=== PATIENT | female | born 1990 | race Caucasian/White ===

== ENCOUNTER 2022-11-23 02:31 | Outpatient (CLI) | payer BC, SELFPAY ==
--- NOTE | 2022-11-23 09:15 | DI.MRI_ITS ---
Exam(s) MR VENOUS BRAIN WO/W EXAM: MR VENOUS BRAIN WO/W CLINICAL HISTORY: ?IIH, papilledema, H47.10 TECHNIQUE: Multiplanar multisequence MRI of the brain was performed. Both noninfused and contrast i nfused sequences were performed. IV Contrast injected was 20 cc Dotarem. COMPARISON: MR MR BRAIN WO from 11/23/2022 FINDINGS: The visualized cortical veins appear patent. Superior sagittal sinus is patent Straight sinus is patent Transverse sinuses exhibit asymmetry with the right transverse sinus being dominant and draining the superior sagittal sinus. The right sigmoid sinus is also dominant. The right jugular vein is dominant IMPRESSION: 1. No evidence of obvious venous sinus thrombosis. The right transverse sinus is dominant with the le ft being smaller, most probably on a developmental basis. DATA REPOSITORY:
--- NOTE | 2022-11-23 09:15 | DI.MRI_ITS ---
Exam(s) MR BRAIN WO EXAM: MR BRAIN WO CLINICAL HISTORY: papilledema, H47.10 TECHNIQUE: Multiplanar multisequence MRI of the brain was performed. COMPARISON: No priors for comparison. FINDINGS: VENTRICLES AND EXTRA AXIAL SPACES: Normal in size and morphology for the patient's age. MIDLINE SHIFT: None. CEREBRAL PARENCHYMA: No focus of restricted diffusion to suggest acute infarct. No space-occupying le wil identified. HEMORRHAGE: None. BRAINSTEM/CEREBELLUM: Normal. CALVARIUM: Normal. VISUALIZED PARANASAL SINUSES/MASTOIDS:There is mucosal thickening in the left maxillary sinus. [place]: Normal flow void. PITUITARY GLAND: There is a partially empty sella. OTHER FINDINGS: None. IMPRESSION: Unremarkable MRI of the brain. DATA REPOSITORY:
[2022-11-23] MEDS: Normal Saline Flush 10 ML SYR IVP (15:56)
[2022-11-23] MEDS: Gadoterate meglumine 20 ML SYRINGE IVP (15:56)
--- NOTE | 2022-11-24 10:39 | DI.VRAD_ITS ---
PROCEDURE INFORMATION: Exam: MRA Head Without and With Contrast, Venography Exam date and time: 11/23/2022 3:47 PM Age: 32 years old Clinical indication: Condition or disease; Other: Papilledema TECHNIQUE: Imaging protocol: Magnetic resonance angiography of the head without and with contrast. Angiographic sequences such as [id number] (TOF) or Time-resolved contrast techniques were performed. Exam focused on the veins. Contrast material: DOTAREM; Contrast volume: 20 ml; Contrast route: INTRAVENOUS (IV); COMPARISON: MR BRAIN WO 11/23/2022 3:31 PM FINDINGS: Superior sagittal sinus: No stenosis or occlusion. Cortical veins appear unremarkable as visualized. Straight sinus: No stenosis or occlusion. Transverse sinuses: Right transverse sinus is dominant draining the superior sagittal sinus. Left transverse sinus is congenitally smaller appears to drain the straight sinus. There is no well-defined stenosis. The dural sinus appears larger distal to the entry of prominent vein of Lizbeth involving the sigmoid sinus and jugular vein without evidence of definite acquired stenosis. Sigmoid sinuses: No stenosis or occlusion. Right sigmoid sinus is dominant. Internal jugular veins: Visualized segment patent. Right jugular vein is dominant. IMPRESSION: 1. No evidence of venous thrombosis. Dominant right transverse sinus. Smaller left transverse sinus most likely on congenital basis. 2. Empty sella turcica noted. Please see report of MRI of brain. Dictated and Authenticated by: Shelly Jones MD. Ordering:GOPAL Hinkle MD
== END 2022-11-23 02:51 ==
PROVIDERS: Visit Provider Psychiatry & Neurology Neurology
DX: H47.10 Unspecified papilledema (principal)
CPT/HCPCS: 70546; 70551

== ENCOUNTER 2022-12-04 10:22 | Outpatient (CLI) | payer BC, SELFPAY ==
[2022-12-04 10:46] VITALS: BP 153/103; PULSE 86; RESP 16; TEMP 36.7; O2SAT 99
--- NOTE | 2022-12-04 11:01 | W.ANESPRE ---
General Info Date of Service Date Performed: 12/04/22 Height: 5 ft Weight: 115.4 kg Body Mass Index (BMI): 49.6 Surgical Procedure: Operation Date: 12/04/22 10:40 Proposed Procedure Side Surgeon p Lumbar Puncture Adolfo Olivera CRNA Meds Allergies and Home Medications Allergies Allergy/AdvReac Type Severity Reaction Status Date / Time hydrocortisone Allergy Unknown Verified 12/04/22 10:42 [From [facility] ([id number])] neomycin Allergy Unknown Verified 12/04/22 10:42 [From [facility]ort ([id number])] polymyxin B Allergy Unknown Verified 12/04/22 10:42 [From [facility]ort ([id number])] Opioids - Morphine Analogues Allergy Other (See Verified 12/04/22 10:42 Comment) Home Medication Medication Instructions Recorded cetirizine 10 mg capsule (Zyrtec) 10 mg PO DAILY PRN 11/15/22 ipratropium 18 mcg-albuterol 103 spray inhalation 11/15/22 mcg/actuation aerosol inhaler methimazole 10 mg tablet 10 mg PO DAILY 11/15/22 omeprazole magnesium 20 mg 20 mg PO DAILY 11/15/22 tablet,delayed release (Prilosec OTC) albuterol sulfate 90 mcg/actuation 2 puff inhalation Q6H PRN 11/21/22 aerosol inhaler (Ventolin HFA) cyclobenzaprine 5 mg tablet 5 mg PO TID PRN 11/21/22 fexofenadine 180 mg tablet 180 mg PO DAILY 11/21/22 (Allergy Relief (fexofenadine)) fluticasone propionate 110 1 puff inhalation BID 11/21/22 mcg/actuation HFA aerosol inhaler (Flovent HFA) ibuprofen 800 mg tablet 800 mg PO TID 11/21/22 levonorgestrel 21 mcg/24 hours (8 1 device intrauterine ONCE 11/21/22 yrs) 52 mg intrauterine device (Mirena) meloxicam 7.5 mg tablet 7.5 mg PO DAILY 11/21/22 montelukast 10 mg tablet 10 mg PO QHS 11/21/22 triamcinolone acetonide 0.1 % 1 applic topical BID 11/21/22 topical cream venlafaxine 37.5 mg 37.5 mg PO DAILY 11/21/22 capsule,extended release 24 hr venlafaxine 75 mg capsule,extended 75 mg PO DAILY 11/21/22 release 24 hr PFSH Active Problems Active Problems: Problem Status Onset Code Obesity, morbid, BMI 50 or higher E66.01 Migraine headache without aura G43.009 Chronic headache R51.9, G89.29 Papilledema H47.10 Medical History Medical History Depression Graves disease Asthma Sleep apnea Environmental allergies Mild acid reflux Medical History Comments:: Residual cough from cold a couple weeks ago. Some exp. wheezes to [facility]. Surgical History Surgical History S/P hernia surgery S/P cholecystectomy Tobacco Smoking/Tobacco Use Status: Current every day Tobacco Type: cigarettes Smoking packs per day: 1 Smoking cigarettes per day: 20.0 Alcohol Alcohol Intake: current Alcohol intake frequency: holidays/special occasions only Substance Use Substance use: Never Details: Sister with h/o anesthesia issues, pt not sure what they were. -BR Vital Signs and Lab Results Vital Signs Most Recent Vital Signs in EMR: Most Recent Vital Signs Temp Pulse Resp BP Pulse Ox 36.7 C 86 16 153/103 H 99 12/04/22 10:46 12/04/22 10:46 12/04/22 10:46 12/04/22 10:46 12/04/22 10:46 Lab Results Blood Type / Crossmatch: No Data to Display Complete Blood Count: No Data to Display Complete Metabolic Panel: No Data to Display Liver Function Panel: No Data to Display Coagulation Panel: No Data to Display Cardiac Panel: No Data to Display Arterial Blood Gas: No Data to Display Venous Blood Gas: No Data to Display Pancreas Panel: No Data to Display Thyroid Panel: No Data to Display Infectious Disease: No Data to Display Blood Cultures: No Data to Display Toxicology Panel: No Data to Display Panel: No Data to Display Anesthesia Assessment and Plan Anesthesia History Personal History: No History of Anesthesia Complications Family History: Other Exercise Tolerance Exercise Tolerance: Metabolic Equivalents>4 Pertinent Negatives Pertinent Negatives: No Symptoms of GERD, No Major Cardiovascular Symptoms or Complaints, No Major Pulmonary Symptoms or Complaints and No History of CVA/TIA Cardiac & Pulmonary Exam Cardiac Exam: Normal S1/S2 Heart Sounds Pulmonary Exam: Clear Bilateral Breath Sounds Implantable Cardiac Device Does patient have a Pacemaker or an ICD?: No Airway Exam Known Difficult Airway: No Mallampati Class: 2 Mouth Opening: Normal (> 3cm) Thyromental Distance: Greater than 3 cm Neck Range of Motion: Full ROM Neck Circumference: Normal Teeth Condition: Normal Dentition ASA Classification ASA Score: ASA 3 Emergency Case?: No NPO Status NPO Status: NPO Clears >2 hours, Solids >8 hours Status Status: Not Relevant due to Medical History and Not Per Patient Anesthesia Plan Resuscitation Status: Full Code Anesthesia Technique: Spinal Anesthesia (Lumbar Puncture) Airway Planned: Natural Airway Monitors Used: Standard Monitors
[2022-12-04 11:20] VITALS: BMI 49.6
[2022-12-04 12:10] VITALS: BP 146/79; PULSE 86; RESP 18; TEMP 37; O2SAT 95
--- NOTE | 2022-12-04 12:10 | W.ANESPROC ---
Lumbar Puncture Date Performed: 12/04/22 Procedure Time: 11:20 Requesting Provider: Loly Hanson Procedure Location: Day Surgery Unit Standard Monitors Applied: None Used Patient Position: Right Lateral Decubitus Timeout Performed: Yes Sedation Given (Indicate Dose Given): MKO Melt PO Dose:: 1 Patient Mental Status: Sedate with meaningful communication Sterility: Hand Hygiene, Surgical Cap, Surgical Mask, Sterile Gloves, Sterile Drape/Sheet, Sterile Gown, Eye Protection and Chlorhexidine Placement Site: L3-L4 Interspace Spinal Needle Type: Other Needle Length: 5 Inch Lumbar Puncture Procedure: Site Prepped, Sterile Drape Placed, 1% Lidocaine to skin and subcutaneous tissue with 25G needle, Spinal Needle Placed, Negative Heme and Negative CSF Flow Ultrasound: Sterile probe cover and gel used Ultrasound Image Saved?: Yes Paresthesia: None Number of Previous Attempts by Other Providers: 0 Number of Attempts (See previous attempts in note section): 3 Procedure Tolerated: Complications Encountered (Transient right sided parasthesias. ) and Patient did not tolerate well Procedure Outcome: Unsuccessful Procedure Comment:: Discussed BMI and possible difficulty of procedure preoperatively. On approach able to palpate spinous process and determine a midline. Approached after timeout and localization. Patient with consistent right paresthesias down right buttock and leg on attempt. Repositioned further to patients left, multiple contacts with bone, no CSF, and again with right sided paresthesias ( less consistent). Withdrew slightly and repositioned with each paresthesia. Examined with Ultrasound and anatomical midline was slightly left of patient perceived midline. Had patient reposition into more of an acute curled position. Attempted again without success. Paused for patient comfort and discussed where we were at in the procedure, discussed reattempt. Patient did not want to proceed today and would like to try again another day, I discussed that this elective and that is absolutely okay and appropriate. I will message Doctor Sam Gabriel. Performed By: Adolfo Olivera
--- NOTE | 2022-12-04 14:29 | W.ANESPOSTOP ---
Postoperative Evaluation Date, Time and Location Date Performed: 12/04/22 Time Performed: 12:10 Patient Location: Day Surgery Unit Vital Signs Most Recent Imported Vital Signs: Most Recent Vital Signs Temp Pulse Resp BP Pulse Ox 37 C 86 18 146/79 H 95 12/04/22 12:10 12/04/22 12:10 12/04/22 12:10 12/04/22 12:10 12/04/22 12:10 Pain Score Most Recent Pain Score: Most Recent Pain Score Pain Level 0 12/04/22 10:46 Assessment Mental Status: Awake (Alert & Oriented to Patient Baseline) Airway and Respiratory Function: Patent airway with normal (patient baseline) respiratory exam Cardiovascular Function: Hemodynamically Stable Hydration Status: Adequately Hydrated Nausea & Vomiting: No Nausea or Vomiting Pain: Pt. Denies Any Pain Peripheral Nerve Block: Patient did not receive a nerve block
== END 2022-12-04 12:30 | disposition home or self-care (01) ==
PROVIDERS: PCP Registered Nurse; Visit Provider Nurse Anesthetist, Certified Registered
PROC: 009U3ZZ Drainage of Spinal Canal, Percutaneous Approach (ICD-10-PCS; CPT 62270; principal; 2022-12-04 10:30)
DX: G93.2 Benign intracranial hypertension (principal)
CPT/HCPCS: 62270